=== PATIENT | male | born 1955 | race Caucasian/White ===

== ENCOUNTER 2024-05-13 06:15 | Day surgery (SDC) | payer BC ==
[~2024-05-13 06:15] MED LIST: Lactated Ringers 1,000 ML IV SCH; cefOXitin 2 GM in Sodium Chloride 0.9% 50 ML IV ONE
[2024-05-13] MEDS ORDERED: propofoL 50 ML ONE (07:45)
== END 2024-05-13 09:35 | disposition home or self-care (01) ==
LOC: MW.SDS 06:15
PROVIDERS: ATTEND Surgery
DX: Z12.11 Encounter for screening for malignant neoplasm of colon (principal); K57.30 Diverticulosis of large intestine without perforation or abscess without bleeding; J45.909 Unspecified asthma, uncomplicated; I10 Essential (primary) hypertension; M19.90 Unspecified osteoarthritis, unspecified site; Z79.899 Other long term (current) drug therapy; Z88.8 Allergy status to other drugs, medicaments and biological substances; Z80.0 Family history of malignant neoplasm of digestive organs
CPT/HCPCS: 45378; J2704; J7120